=== PATIENT | male | born 1945 | race Caucasian/White ===

== ENCOUNTER 2017-07-07 14:16 | Emergency (ER) | payer MEDICARE ==
[~2017-07-07] VITALS: Ht 175.3 cm; Wt 68.0 kg
--- NOTE | 2017-07-07 15:29 | Emergency Room Report ---
History of Present Illness Time Seen by MD Moreno Presenting Problem in Triage Pt arrived:Walked Presenting Problem:DIZZY, FELL AT 1100, STATES POSITIVE LOSS OF CONSCIOUSNESS, SCALP LAC Onset of symptoms date/time:/ or onset unknown for:MEDICAL HX UNKNOWN Treatment Prior to Arrival: MUSICAL ENGINEER Provided by: Sepsis Risk Assessment: Temp: 97.5 B/P: 199/105 MAP: 136 Pulse: 73 Resp: 18 Recent fever? N Clinical Suspician of Infection? N Mental Status: 1 - Regular (Normal Baseline) Sepsis Risk:Low Sepsis Risk Have you (or family members/close friends) recently traveled outside the [place]? N If Yes, where/when: Have you had exposure to infectious disease within the past month? N TB? Other? Specify: Comment The patient states that he fell in driveway today and hit his head. He says he believes he had a brief loss of consciousness. He says ever since he had bypass surgery in March he has had problems with his blood pressure dropping. He believes that's what happened and caused him to fall today. He now feels fine. He denies headache, vomiting, neck pain. He is not on any blood thinners, including aspirin. Says he cannot take blood thinners because of diabetic retinopathy. Last tetanus shot unknown. ALLERGIES Coded Allergies: No Known Allergies (03/13/17) History Medical History General Angina: Yes DE: No Hypertension? Yes Hyperlipidemia? Yes CHF? No COPD? No Asthma? No Hernia? No CVA? No Seizures? No Diabetes? Yes Insulin Dependent: No Insulin Pump: No Home FSBS? Yes UTI? No Stones? No GB Disease: No Hepatitis? No Cataracts? Yes Glaucoma? No Cancer? No More? No Immunization Hx DT/Tetanus > 10 Years Ago Flu Refused Pneumonia Received In Past Surgical Hx Previous Surgery?Y EYE SURGERY Coronary Artery Bypass Family History Family Hx Diabetes Yes CAD Yes Hypertension Yes Hyperlipidemia Yes Cancer No TB No Social History Smoking Hx Smoker: Never Smoker Tobacco: No Alcohol Alcohol: No Review of Systems All Other Systems Reviewed and Negative Respiratory denies shortness of breath Cardiovascular denies chest pain Gastrointestinal denies abdominal pain, denies nausea, denies vomiting Musculoskeletal denies back pain, denies neck pain Psychiatric/Neurological denies headache, denies numbness, denies weakness Physical Exam Vital Signs Vital Signs Date Time Temp Pulse Resp B/P Pulse O2 O2 Flow FiO2 Ox Delivery Rate 07/07 1613 74 20 145/91 98 07/07 1532 97.5 73 18 157/89 100 07/07 1426 97.5 73 18 199/105 100 General Appearance normal appearance, WD/WN Eye Exam - bilateral eye normal exam, bilateral eye PERRL, bilateral eye EOMI Ear, Nose, Throat hearing grossly normal, 2 cm RIGHT posterior parietal scalp laceration with mild surrounding soft tissue swelling. On exploration no foreign bodies or contamination. No penetration of the galea.No bony depression. Neck normal inspection, non-tender, supple, full range of motion Respiratory Status Yes: trachea midline, chest symmetrical, non tender chest. No: respiratory distress. Lung Sounds bilateral: normal breath sounds, lungs clear. Cardiovascular normal exam, regular rate/rhythm, no peripheral edema, no gallop, no JVD, no murmur, no rub, normal peripheral pulses Peripheral Pulses Pulses normal Yes Gastrointestinal normal bowel sounds, normal exam, non tender, soft, no organomegaly Extremities non-tender, normal range of motion, normal inspection Neurologic alert, elderly caregiver II-XII nml as tested, normal exam, no motor/sensory deficits, oriented x 3 Mental status normal mood/affect Skin intact, normal color, warm/dry Medical Decision Making LABS/Meds/Orders Pt receiving controlled substance in ED? No Results/Orders Current Medication Orders Sig/Gen Start time Last Medication Dose Route Stop Time Status Admin Diphtheria/Pertussis/ 0.5 ML ONCE ONE 07/07 1445 DC 07/07 Tetanus Vacc IM 07/07 1446 1437 Lidocaine/Epinephrine 0 .STK-MED ONE 07/07 1431 DC .ROUTE Lidocaine/Epinephrine 10 ML ONCE ONE 07/07 1430 DC SC 07/07 1431 Diphtheria/Pertussis/ 0 .STK-MED ONE 07/07 1427 DC Tetanus Vacc IM Orders Procedure Date/time Status DIET-NOTHING BY MOUTH 07/[address] HEAD REQ 07/[address] SCAN REQ 07/07 1433 Complete XRAY/CT/US XRAY/CT/US CT head, C-spine Comment CT scan interpreted by ad radiologist. Faxed report received and reviewed: Head: RIGHT parietal subcutaneous tissue hematoma no definite acute intracranial abnormality. 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 At this point he says he does not want any further diagnostic testing for that, he just wants evaluation and treatment of his head wound. Procedures Laceration/Wound Repair Progress Laceration Repair Performed by: TORSTEN HOOD Consent: Verbal consent obtained. Consent given by: patient Patient identity confirmed: verbally with patient Laceration location: Scalp Laceration length: 2 cm Local anesthetic: 1 percent lidocaine with epinephrine Wound prep: Sterilly scrubbed with Hibiclens and irrigated with copious normal saline. Draping: Sterile in usual manner Patient sedated: no Debridement: minimal Exploration: No foreign body or deep structure injury found. No injury to galea. Layers Closed: Skin Suture material: Skin yanelis Number of yanelis: 4 Repair complexity: Simple Patient tolerance: Patient tolerated the procedure well with no immediate complications Departure Departure Disposition DC Home or Self Care(routine) Clinical Impression Primary Impression: Scalp laceration Qualifiers: Encounter type: initial encounter Qualified Code: S01.01XA - Laceration without foreign body of scalp, initial encounter Secondary Impressions: Concussion Qualifiers: Encounter type: initial encounter Loss of consciousness presence/ duration: with LOC of 30 min or less Qualified Code: S06.0X1A - Concussion with loss of consciousness of 30 minutes or less, initial encounter Condition STABLE Referrals Victor Hugo Downing MD (Family) Patient Instructions DI for Closed Head Injury, DI for Laceration Repair -- [place] Additional Instructions Additional instructions for SCALP LACERATION: Clean the wound daily with soap and water. You may shower and shampoo your hair. Avoid submerging the wound. No swimming.. Apply a thin film of antibiotic ointment such as neosporin, polysporin, or triple antibiotic daily after showering. Be careful when combing or brushing hair so that you so not snag the yanelis with a comb or brush. See your primary care physician or return in 7 days for staple removal. Return if any signs of infection including increasing pain, pus drainage, swelling, redness, red streaks, or fever. Additional instructions for HEAD INJURY: See your physician as soon as possible for further evaluation. Return immediately if severe headache, vomiting, problems with vision or speech, numbness or weakness of the extremities, or severe neck pain. ED Critical Care Critical Care No at 182
[2017-07-07 16:13] VITALS: BP 145/91
--- NOTE | 2017-07-07 17:39 | RADIOLOGY REPORT PS360 ---
CT HEAD W/O CONTRAST HISTORY: Headache/pain, abrasion to the back of the head, loss of consciousness FALL ORDERING PHYSICIAN: Torsten Mchugh MD PATIENT AGE: 72 years COMPARISON: None TECHNIQUE: Axial images obtained without contrast. Brain and bone windows reviewed. FINDINGS: No midline shift, mass effect, intracranial hemorrhage, hydrocephalus, or extra-axial fluid collection is evident. The calvarium has an unremarkable appearance. Scalp hematoma is present in the right parietal region. No mastoid effusion. The visualized paranasal sinuses are unremarkable. IMPRESSION: 1. No acute intracranial pathology. 2. Right parietal scalp hematoma
--- NOTE | 2017-07-07 17:46 | RADIOLOGY REPORT PS360 ---
CT CERVICAL SPINE W/O CONT INDICATION: Neck pain following injury FALL ORDERING PHYSICIAN: Torsten Mchugh MD PATIENT AGE: 72 years COMPARISON: None TECHNIQUE: Axial images are obtained without contrast. Sagittal and coronal reformatted images are reviewed as well. FINDINGS: The no fracture or dislocation. There is normal alignment. There is multilevel degenerative disc disease from C3 C7 with endplate osteophytes along with facet and uncovertebral hypertrophy with bilateral foraminal narrowing at C3-C4, C4-C5, C5-C6, C6-C7 no prevertebral soft tissue swelling. Lung apices clear. IMPRESSION: 1. No acute fracture. 2. Cervical spondylosisc report
== END 2017-07-07 16:14 | disposition home or self-care (01) ==
LOC: ER 14:16
PROC: 0HQ0XZZ Repair Scalp Skin, External Approach (ICD-10-PCS; principal; 2017-07-07)
DX: S01.01XA Laceration without foreign body of scalp, initial encounter (principal); S06.0X1A Concussion with loss of consciousness of 30 minutes or less, initial encounter; E11.319 Type 2 diabetes mellitus with unspecified diabetic retinopathy without macular edema; I10 Essential (primary) hypertension; W18.39XA Other fall on same level, initial encounter; Y92.008 Other place in unspecified non-institutional (private) residence as the place of occurrence of the external cause; Z23 Encounter for immunization

== ENCOUNTER 2017-07-18 17:16 | Emergency (ER) | payer MEDICARE ==
[~2017-07-18] VITALS: Ht 175.3 cm; Wt 68.5 kg
--- NOTE | 2017-07-18 17:41 | Urgent Treatment Center Report ---
History of Present Issue Date/Time Seen by Provider 07/18/17 1741 Visit Reason Pt arrived:Walked Presenting Problem:PT STATES CONSTIPATION X3 DAYS Location if Accident: Onset of symptoms date/time:/ or onset unknown for:MEDICAL HX UNKNOWN Have you (or family members/close friends) recently traveled outside the [place]? N If Yes, where/when: Have you had exposure to infectious disease within the past month? TB? Other? Specify: c/o rectal discomfort and constipation. LBM 2 days ago despite taking oral laxatives. "not sure if it is a hemorrhoid or poop there but feels like a brick ". Uncomfortable to sick down today. mild discomfort left lower abdomen "but that is expected with as much laxatives and no bowel movement". Denies fever, nausea, vomiting. hx of constipation after surgeries in the past. Source patient Exam Limitations no limitations ALLERGIES Coded Allergies: No Known Allergies (03/13/17) History Medical History General Angina: Yes NC: No Hypertension? Yes Hyperlipidemia? Yes CHF? No COPD? No Asthma? No Hernia? No CVA? No Seizures? No Diabetes? Yes Insulin Dependent: No Insulin Pump: No Home FSBS? Yes UTI? No Stones? No GB Disease: No Hepatitis? No Cataracts? Yes Glaucoma? No Cancer? No More? No Immunization HX DT/Tetanus > 10 Years Ago Flu Refused Pneumonia Received In Past Surgical Hx Previous Surgery?Y EYE SURGERY Coronary Artery Bypass Family History Family HX Diabetes Yes CAD Yes Hypertension Yes Hyperlipidemia Yes Cancer No TB No Social History Smoking Hx Smoker: Never Smoker Tobacco: No Alcohol Alcohol: No Review of Systems All Other Systems Reviewed and Negative Constitutional denies fever, denies malaise, denies weakness Gastrointestinal see HPI, denies diarrhea Genitourinary denies: dysuria, frequency. Musculoskeletal denies back pain Skin denies lesions, denies lumps, denies rash Physical Exam Vital Signs Vital Signs Date Time Temp Pulse Resp B/P Pulse O2 O2 Flow FiO2 Ox Delivery Rate 07/18 1738 97.9 102 20 131/85 98 General Appearance mild distress (leaning to one side) Respiratory Status No: respiratory distress. Cardiovascular no peripheral edema Gastrointestinal non tender, soft, no organomegaly, no pulsatile mass, abnormal bowel sounds (hyperactive all quadrants), no guarding, no rebound Back gait normal Rectal hard brown stool present at anus, small nontender external hemorrhoid Nurse present during exam? No ( present) Neurologic alert, oriented x 3 Skin normal color, warm/dry Medical Decision Making LABS/Meds/Orders Pt receiving controlled substance in ED? No Results/Orders Orders Procedure Date/time Status GEN NSG/PT REQ (NOT FOR MEDS!) 07/[address] [facility] Progress Notes Date 07/18/17 Time 1840 Comment s/p disimpaction by nurse, pt reports he feels "much better" Rectal pain is resolved and no longer feels "brick" in rectum. tried to have use restroom after disimpaction without any luck. "but not painful or feel like I need to now". Departure Departure Time of Disposition 1841 Disposition DC Home or Self Care(routine) Clinical Impression Primary Impression: Impaction of colon Condition STABLE Referrals Chang WOOD,Victor Hugo (Family) Tomorrow if you haven't returned to normal bowel habits. Patient Instructions DI for Fecal Impaction Additional Instructions your bowel sounds are VERy active, likely due to laxatives. I believe you may have diarrhea now that impaction resolved. *If no BM by morning, one over the counter fleets enema in the morning. Educated provided. reports she has used them *Follow up with primary care or this clinic if still no BM or if after BM, still not back to normal bowel habits. Discharge Counseling Counseled pt/family regarding diagnosis, medications/RX, home care, follow up needs at 1844
[2017-07-18 18:45] VITALS: BP 131/85
== END 2017-07-18 18:46 | disposition home or self-care (01) ==
LOC: ER 17:16 → UTC 17:31 → ER 17:31 → UTC 18:46
DX: K59.00 Constipation, unspecified (principal); R10.32 Left lower quadrant pain; I10 Essential (primary) hypertension; E11.9 Type 2 diabetes mellitus without complications